=== PATIENT | male | born 1955 | race Caucasian/White ===

== ENCOUNTER 2022-09-02 11:23 | Emergency (ER) | payer MEDICARE, SELFPAY ==
[2022-09-02] VITALS (12 sets, daily range): BP systolic 168–238; BP diastolic 76–104; PULSE 59–75; TEMP 36.7; O2SAT 97–100; BMI 21.8
--- NOTE | 2022-09-02 11:26 | ED_ITS ---
HPI - General Adult General Date Seen: 09/02/22 Chief complaint: Hypertension Stated complaint: High blood pressure Time Seen by Provider: 09/02/22 11:26 Source: patient, RN notes reviewed and old records reviewed Mode of arrival: ambulatory Limitations: no limitations History of Present Illness HPI narrative: Jonnathan is a very pleasant 67-year-old gentleman otherwise healthy who was sent to the [facility] by the clinic today for elevated blood pressure. Patient had presented this morning for a cleaning and a checkup of his dentist at [facility] in [place]. At that time they had 3 separate blood pressure readings of approximately 200/100. Denies headache, chest pain, shortness of breath, visual changes. He does state that over the past years his blood pressure has been creeping up and he was worn by his MD that he would eventually need a blood pressure medication. Two days ago he states he was feeling ?queasy? and blood pressure at that time was 150/80. He had family members who at had similar symptoms but at least 10 days prior. He notes he felt like he was going to vomit and had low energy but it only lasted 1 day. He denied chest pain or shortness of breath at that time. He had no fever or chills. The next day which is yesterday he was feeling well. He continues to feel well today. Patient was playing table tennis yesterday which was quite intense at the [employer] [facility] and had no symptoms. He denies use of coffee as this caused him some palpitations in the past. He has not had coffee for a year. Last night he did eat at [employer] a local [place] restaurant. He primarily sees Dr. Eulogio ordonez. He does not know his cholesterol and is not on any current medications. He does take a vitamin-D daily in the winter only. His primary is Dr. Ro. Related Data Previous Rx's Medication Instructions Recorded amlodipine 2.5 mg-benazepril 10 mg 1 cap PO DAILY #14 caps 09/02/22 capsule Allergies Allergy/AdvReac Type Severity Reaction Status Date / Time No Known Drug Allergies Allergy Verified 09/02/22 11:36 Review of Systems Status of ROS: Reports: 10 or more systems reviewed and unremarkable except as noted in History and below Const: Denies: fever or chills Eyes: Denies: change in vision, blurry vision, blind spots or light sensitivity ENMT: Denies: throat pain, neck pain or difficulty swallowing Cardio: Denies: chest pain, palpitations, edema, swelling of feet/ankles, lightheadedness or shortness of breath with exertion Resp: Denies: shortness of breath or cough GI: Denies: abdominal pain, nausea, vomiting, diarrhea or difficulty swallowing Musculo: Denies: back pain, neck pain or extremity swelling Neuro: Denies: headache, numbness in extremities or weakness in extremities Psych: Denies: anxiety PFSH PFS Social History Smoking Status: Never smoker How often do you have a drink containing alcohol: 2-4 times a month How often do you have six or more drinks on one occasion: Never AUDIT-C Alcohol total score: 2 Non-prescribed substance use: denies use Exam Narrative: Exam Narrative: Jonnathan is alert and oriented. Very pleasant well-spoken gentleman. Head is atraumatic normocephalic. EOM is full and pupils equal round reactive. Examination of the fundi show no flame hemorrhages. Heart with regular rate and rhythm. Lungs are clear in all lung boothe. Abdomen soft nontender without pulsating mass. Lower extremities without edema. Pedal pulses posterior tibialis are intact and symmetrical. Const: Vital Signs, click to edit/add: Vital Signs - 24 hr 09/02/22 11:30 09/02/22 11:46 09/02/22 12:00 Temperature 98.1 F Pulse Rate 62 70 Pulse Rate [Pulse Oximeter] 75 Blood Pressure Blood Pressure [Ri ght Upper Arm] 238/99 H Pulse Oximetry 99 100 99 Oxygen Delivery Me thod Room Air 09/02/22 12:04 09/02/22 12:05 09/02/22 12:21 Temperature Pulse Rate 63 68 60 Pulse Rate [Pulse Oximeter] Blood Pressure 215/104 H Blood Pressure [Ri ght Upper Arm] Pulse Oximetry 99 98 99 Oxygen Delivery Me thod 09/02/22 12:30 09/02/22 12:32 09/02/22 12:45 Temperature Pulse Rate 64 59 L 60 Pulse Rate [Pulse Oximeter] Blood Pressure 169/76 H Blood Pressure [Ri ght Upper Arm] Pulse Oximetry 98 97 97 Oxygen Delivery Me thod 09/02/22 13:00 Temperature Pulse Rate 60 Pulse Rate [Pulse Oximeter] Blood Pressure Blood Pressure [Ri ght Upper Arm] Pulse Oximetry 97 Oxygen Delivery Me thod Documenting provider has reviewed patient's vital signs: yes Eye: Direct Ophthalmoscopy: no photophobia Course Course Hospital Course: Patient presents with elevated blood pressure, states that is been climbing over the years. Not currently on any a antihypertensives. Patient denies chest pain, shortness of breath, dizziness, visual changes. Does not appear to be hypertensive emergency or urgency. Patient agreeable to EKG, labs to include CBC and basic panel and troponin. Will continue to monitor. Vital Signs Vital signs: Initial Vital Signs Temperature 98.1 F 09/02/22 11:30 Temperature Source Temporal Artery Scan 09/02/22 11:30 Pulse Rate 75 09/02/22 11:30 Pulse Rhythm Irregular 09/02/22 11:30 Blood Pressure 238/99 H 09/02/22 11:30 Blood Pressure Mean 145 09/02/22 11:30 Blood Pressure Position Sitting 09/02/22 11:30 Pulse Oximetry 99 09/02/22 11:30 Oxygen Delivery Method Room Air 09/02/22 11:30 Vital Signs Temperature 98.1 F 09/02/22 11:30 Pulse Rate 75 09/02/22 11:30 Blood Pressure 238/99 H 09/02/22 11:30 Pulse Oximetry 99 09/02/22 11:30 Oxygen Delivery Method Room Air 09/02/22 11:30 Temperature 98.1 F 09/02/22 11:30 Pulse Rate 60 09/02/22 13:00 Blood Pressure 169/76 H 09/02/22 12:32 Pulse Oximetry 97 09/02/22 13:00 Oxygen Delivery Method Room Air 09/02/22 11:30 Medical Decision Making MDM Narrative Medical decision making narrative: 1. Hypertension-no evidence of urgency or emergency in this particular case. Patient's blood pressure gradually dropped to 168/77. He continued to be asymptomatic and had no complaints. At this time according to UpToDate he is eligible for a dual therapy in 1 pill. Will use amlodipine 2.5 mg/benazepril 10 mg as a starting medication. I did tell patient that he may be changed to a different medication based on clinic doctors preference. I would like him to push fluids at this time. Monitor pulse and if his pulse drops into the 40s or he has symptoms he will need to discontinue the medication. Follow up with his primary MD over the next week. Did speak to patient about normal CBC and basic panel especially potassium and kidney function. Troponin was negative. 2. Disposition-home at this time. Return as needed. Medical Records Medical records reviewed: Yes I reviewed the patient's medical records Lab Data Lab results reviewed: Yes I reviewed the patient's lab results Labs: Lab Results 09/02/22 09/02/22 Range/Units 12:08 12:15 WBC 5.81 (4.50-11.00) K/uL RBC 4.71 (4.30-5.90) m/uL Hgb 14.5 (13.5-17.5) gm/dL Hct 42.0 (37.0-53.0) % MCV 89 (80-100) fL MCH 31 (26-34) pg MCHC 35 (32-36) gm/dL RDW Coeff of Tony 11.7 (11.5-15.5) % Plt Count 211 (140-440) K/uL Neut % (Auto) 73.6 H (42.0-72.0) % Lymph % (Auto) 18.2 L (20-44) % Davis % (Auto) 7.2 (0.0-11.0) % Eos % (Auto) 0.5 (0.0-7.0) % Baso % (Auto) 0.3 (0.0-3.0) % Neut # (Auto) 4.30 (1.7-7.0) K/uL Lymph # (Auto) 1.10 (0.90-2.90) K/uL Davis # (Auto) 0.40 (0.00-0.90) K/UL Eos # (Auto) 0.03 (0.00-0.50) K/uL Baso # (Auto) 0.02 (0.00-0.30) K/uL Sodium 139 (135-149) mmol/L Potassium 4.1 (3.6-5.1) mmol/L Chloride 105 (96-114) mmol/L Carbon Dioxide 29 (20-32) mmol/L BUN 19 (7-30) mg/dL Creatinine 1.0 (0.5-1.5) mg/dL Estimated Creat Clear 76.92 Estimated GFR 83 ml/min Glucose 96 (60-115) mg/dL Calcium 8.9 (8.4-10.6) mg/dL POC Troponin I 0.01 (0.01-0.04) ng/ml ECG Data Attestation: I personally reviewed and interpreted this ECG as follows: Interpretation: EKG by my read shows sinus bradycardia at a rate of 59. No noted acute ST or T- wave changes. Normal QT and NE intervals. Discharge Plan Discharge Clinical Impression: Hypertension Patient Disposition: Home, Self-Care Condition: Improved Additional Instructions: Start a new blood pressure medication. If your pulse is drops into the 40s or you do not feel well with this medication discontinue. Push fluids. Follow-up with primary MD in the next week. Return to the emergency room as needed. Prescriptions: New amlodipine-benazepril 2.5-10 mg capsule 1 cap PO DAILY Qty: 14 0RF Follow Up/Referrals: Adeel Ro MD [Primary Care Provider] - Stand Alone Forms: [employer] Info Instructions
[2022-09-02 12:32] LABS: Basophils Absolute Auto 0.02 K/uL (0.00-0.30); Basophils Percent Auto 0.3 % (0.0-3.0); Eosinophils Absolute Auto 0.03 K/uL (0.00-0.50); Eosinophils Percent Auto 0.5 % (0.0-7.0); Hemoglobin* 14.5 gm/dL (13.5-17.5); Immature Granulocytes Abs Auto 0.01 K/uL (0.00-0.30); Immature Granulocytes Pct Auto 0.2 %; Lymphocytes Percent Auto 18.2 % (20-44); Mean Corpuscular HGB Conc 35 gm/dL (32-36); Mean Corpuscular Hemoglobin 31 pg (26-34); Mean Corpuscular Volume 89 fL (80-100); Monocytes Percent Auto 7.2 % (0.0-11.0); Neutrophils Percent Auto 73.6 % (42.0-72.0); Platelet Count* 211 K/uL (140-440); RDW Coefficient of Variation % 11.7 % (11.5-15.5); Red Blood Count 4.71 m/uL (4.30-5.90); White Blood Count* 5.81 K/uL (4.50-11.00)
[2022-09-02 12:32] LABS: Troponin, Point-of-Care* 0.01 ng/ml (0.01-0.04)
[2022-09-02 12:35] LABS: Slide Review Reflex No
[2022-09-02 12:45] LABS: Chloride* 105 mmol/L (96-114); Potassium* 4.1 mmol/L (3.6-5.1); Sodium* 139 mmol/L (135-149)
[2022-09-02 12:48] LABS: Blood Urea Nitrogen* 19 mg/dL (7-30); Carbon Dioxide* 29 mmol/L (20-32); Est. Creatinine Clearance* 76.92; Estimated Glomerular Filt Rate 83 ml/min
[2022-09-02 12:49] LABS: Calcium* 8.9 mg/dL (8.4-10.6); Glucose* 96 mg/dL (60-115)
== END 2022-09-02 13:33 | disposition home or self-care (01) ==
PROVIDERS: Emergency Provider Family Medicine; PCP Internal Medicine
DX: I10 Essential (primary) hypertension (principal)
CPT/HCPCS: 36415; 80048; 84484; 85025; 93005; 99284

== ENCOUNTER 2023-09-25 07:40 | Outpatient (CLI) | payer MEDICARE, SELFPAY | END 2023-09-25 07:41 | disposition home or self-care (01) | LOC: NFLDREF 09-29 18:45 | PROVIDERS: PCP Internal Medicine; Referring Provider Internal Medicine; Visit Provider Internal Medicine | DX: I10 Essential (primary) hypertension (principal); Z13.220 Encounter for screening for lipoid disorders; Z12.5 Encounter for screening for malignant neoplasm of prostate | CPT/HCPCS: 80053; 80061; G0103 ==

== ENCOUNTER 2023-09-27 11:04 | Outpatient (CLI) | payer MEDICARE, SELFPAY | END 2023-09-27 11:05 | disposition home or self-care (01) | PROVIDERS: PCP Internal Medicine; Visit Provider Internal Medicine | DX: I10 Essential (primary) hypertension (principal) | CPT/HCPCS: 80053; 84443 ==

== ENCOUNTER 2023-10-06 09:44 | Outpatient (CLI) | payer MEDICARE, SELFPAY | END 2023-10-06 09:45 | disposition home or self-care (01) | LOC: RAD 09:45 | PROVIDERS: PCP Internal Medicine; Visit Provider Internal Medicine | DX: I10 Essential (primary) hypertension (principal); I07.1 Rheumatic tricuspid insufficiency | CPT/HCPCS: 93306 ==

== ENCOUNTER 2024-12-09 14:46 | Outpatient (CLI) | payer MEDICARE, SELFPAY ==
--- OUTSIDE RECORDS SUMMARY | 2024-12-10 02:24 | XMS_ITS | Clinical Summary ---
Author Organization [facility] Address [address], [place] [address] Care Team Providers Care Sample Distributor Name Role Phone Asim Nelson MD Primary Care Provider Source Comments You are receiving this document as you are listed as the primary care provider,follow-up provider, or the patient has been referred to you for consultation.This is in compliance with the Medicare and[facility] EHR Incentive Program,which states Providers who transition their patient to another setting of careor provider of care or refers their patient to another provider of care shouldprovide summary care record for each transition of care or referral. [facility] Allergies No known active allergies Medications amLODIPine-gayle zepril (LOTREL) 2.5-10 MG capsule Take 1 Capsule by mouth daily. 3 Active sodium fluoride dental (PREVIDENT) 1.1 % gel Apply thin ribbon to teeth with toothbrush or mouthpiece tray for at least 1 minute. Spit out gel and rinse mouth thoroughly. 60 g 6 3 Active sodium fluoride dental (PREVIDENT) 1.1 % gel Apply thin ribbon to teeth with toothbrush or mouthpiece tray for at least 1 minute. Spit out gel and rinse mouth thoroughly. 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 Diplopia 02/04/2009 Resolved Problems Problem Noted Date Diagnosed Date Resolved Date Aortic valve disorder 03/12/20092010 Overview (03/12/2015): regurg mild on echo Epic Immunizations Immunization Administration Dates Next Due Flu Vac (18-64 Yrs), Intradermal 03/30/2012 Flu Vac (3+ yrs) 07/02/2010, 9,05/02/2006,2004,04/17/2003,04/10/2002 Influenza IIV4 (Quadrivalent ) 0.5mL (41854) 05/09/2017 Influenza Vaccine (3+years) ([facility]) 03/28/2011,04/09/2008,04/24/2007 Td 03/06/1996 Tdap 02/23/2006 Family History Medical History Relation Name Comments Other Father father has abdo dante aneurysm Cataract Mother Hypertension Mother Relation Name Status Comments Father Mother Social History Tobacco Use Types Packs/Day Years Used Date Smoking Tobacco: Never Smokeless Tobacco: Never Alcohol Use Standard Drinks/Week Comments Yes 1 (1 standard drink = 0.6 oz pure alcohol) socially possibly one drink/day Sex and Gender Information Value Date Recorded Sex Assigned at Not on file Legal Sex Male 3:46 AM CDT Gender Identity Not on file Sexual Orientation Not on file 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 file Not on file Not on fi le Last Filed Vital Signs Vital Sign Reading Time Taken Comments Blood Pressure 138/88 08/30/2017 8:27 AM CDT Pulse 71 09/02/2022 9:01 AM CDT Temperature 36.1 C (97 F) 09/14/2010 10:27 AM CDT Respiratory Rate 16 08/20/2010 8:22 AM [employer] Oxygen Saturation 100% 07/01/2010 4:22 PM [employer] Inhaled Oxygen Concentration - - Weight 75.8 kg (167 lb) 09/14/2010 10:27 AM CDT Height 184.2 cm (6' 0.5) 08/20/2010 8:22 AM [employer] Body Mass Index 22.34 08/20/2010 8:22 AM [employer]SEM[employer] Plan of Treatment Health Maintenance Due Date Last Done Comments Colon Cancer Screening Plan Due 1955 Hep C Screening (Preventive Services) 1955 PSA Screening Discussion 1955 Adult Preventive Visit 02/08/1974 Pneumococcal Vaccine 50+ Yrs (1 of 1 - PCV) 02/08/2006 Cholesterol 11/12/2009 11/12/2004 Zoster/Shingles Vaccine (2 of 3) 04/14/2016 02/18/2016 COVID-19 Vaccine (2 - season) 2024 09/21/2020 Influenza Vaccine (Season Ended) 2025 06/15/2018, 05/09/2017, 03/30/2012, Additional history exists DTaP/Tdap/Td Vaccine (3 - Tdap) 02/17/2026 02/18/2016, 02/23/2006, 03/06/1996 RSV Vaccine (1 - 1-dose 75+ series) 02/08/2031 HepA Vaccine Aged Out No longer eligi ble based on patient's age to complete this topic HepB Vaccine Aged Out No longer eligi ble based on patient's age to complete this topic Hib Vaccine Aged Out No longer eligi ble based on patient's age to complete this topic IPV (Polio) Vaccine Aged Out No longe r eligible based on patient's age to complete this topic MCV4 Vaccine Aged Out No longer eligi ble based on patient's age to complete this topic Meningococcal B Vaccine Aged Out No l onger eligible based on patient's age to complete this topic Procedures Procedure Name Priority Date/Time Associated Diagnosis Comments CHOLESTEROL, TOTAL AND HDL Routine 11/12/2004 2:56 PM CDT Screen For Lipid Disorders from Last 3 Months or Most Recently Relevant to Health Maintenance Results * CHOLESTEROL, TOTAL AND HDL (11/12/2004 2:56 PM CDT) Pathologist [facility] Cholesterol 174 <200 mg/dl [facility] HDL 40 >35 mg/dl [employer] 11/12/2004 2:56 PM CDT 11/12/2004 2:57 PM CDT us Obi Brooks MD LAB_[email or web address] Final Result [facility] [address] [id number] from Last 3 Months or Most Recently Relevant to Health Maintenance Insurance [facility] Care Teams Sample Distributor Relationship Specialty Start Date End Date Asim Nelson MD [address] [place] [address] PCP - General 03/10/09
--- OUTSIDE RECORDS SUMMARY | 2024-12-10 02:24 | XMS_ITS | Clinical Summary ---
Author Organization [employer] [facility] Address [address] [place] [id number] Care Team Providers Care Cancer Genetics Assistant Name Role Phone Adeel Ro MD Primary Care Provider Allergies No known active allergies Medications amLODIPine-benaze pril, 2.5-10 mg, (LOTREL) 2.5-10 mg capsule Take 1 Capsule by mouth once daily. Active Eliquis 5 mg tablet Take 5 mg by mouth two times daily. 4 Active metoprolol succinate (Toprol XL) 50 mg sustained-release tabletIndications :Persistent atrial fibrillation (HC) Take 1 Tablet (50 mg) by mouth once daily. 90 Tablet 3 4 Active Encounters Date Type Department Care Team Description 12/09/2024 3:00 PM CDT Ancillary Procedure [facility] [address] [place] [address] Arrived 12/03/2024 Telephone [facility] [address] [place] [address] Mary Grace Jiménez MD Appointment 11/29/2024 Telephone [facility] [address] [address] Mary Grace Jiménez MD Echo Order 10/07/2024 1:30 PM CDT Office Visit [facility] [address] [place] [address] [address] [id number] Mary Grace Jiménez MD Follow Up (6 month f/u. 04/15 zio. Pt states feeling good. No cardiac symptoms. ) 10/07/2024 Travel 10/04/2024 Travel from Last 3 Months Social History Tobacco Use Types Packs/Day Years Used Date Smoking Tobacco: Never Smokeless Tobacco: Never Tobacco Cessation:Counseling Given: Not Answered Alcohol Use Standard Drinks/Week Comments Yes 3 (1 standard drink = 0.6 oz pur e alcohol) Interpersonal Safety Answer Date Record ed Are you being hit, kicked, p ushed or yelled at (see row info)? No 12/20/2023 Interpersonal Safety Abuse 12 - 18 Not on file 12/20/2023 Interpersonal Safety Ambulatory Vulnerability No t on file 12/20/2023 Sex and Gender Information Value Date Recorded Sex Assigned at Not on file Legal Sex Male 9:27 AM CDT Gender Identity Not on file Sexual Orientation Not on file Obstetrics History Last Filed Vital Signs Vital Sign Reading Time Taken Comments Blood Pressure 128/76 10/07/2024 1:33 PM CDT Pulse 76 10/07/2024 1:33 PM CDT Temperature 36.3 C (97.3 F) 12/20/2023 2:30 PM CDT Respiratory Rate 16 12/20/2023 2:30 PM CDT Oxygen Saturation 100% 10/07/2024 1:33 PM CDT Inhaled Oxygen Concentration - - Weight 81.1 kg (178 lb 12.8 oz) 10/07/2024 1:33 PM CDT Height 185.4 cm (6' 1) 10/07/2024 1:33 PM CDT Body Mass Index 23.59 10/07/2024 1:33 PM CDT Plan of Treatment Health Maintenance Due Date Last Done Comments Tdap 02/08/1967 Depression screening for age 12+ 1968 Hepatitis C screening for ag e 18-79 02/08/1974 Pneumococcal series for age 50+ (1 of 2 - PCV) 02/08/1975 Tetanus booster 1976 Colonoscopy through age 75 02/08/2001 Lipids for age 45-75 02/08/2001 Zoster (shingles) series for age 50+ (1 of 2) 02/08/2006 Medicare Wellness for age 65+ 02/08/2021 COVID-19 vaccine series (2 - season) 2024 09/21/2020 Influenza Vaccine (Season Ended) 2025 BMI (ht and wt on same day) for age 18+ 10/07/2025 10/07/2024, 04/08/2024 RSV vaccine for adults or (1 - 1-dose 75+ series) 02/08/2031 Hepatitis B series for 19+ Aged Out N o longer eligible based on patient's age to complete this topic Procedures Procedure Name Priority Date/Time Associated Diagnosis Comments ECHO TTE COMPLETE WO CONTRAST Routine 12/09/2024 3:37 PM CDT Persistent atrial fibrillation (HC) EKG 12 LEAD Routine 10/07/2024 1:29 PM CDT Persistent atrial fibrillation (HC) from Last 3 Months Results * ECHO TTE COMPLETE WO CONTRAST (12/09/2024 3:37 PM CDT) AORTIC VALVE MEAN PG 7 mmHg EJECTION FRACTION 63 % PEAK TR VELOCITY 2.3 m/s LVEDD 3.3 cm Anatomical Region Laterality Modality Ultrasound 12/09/2024 3:00 PM CDT Narrative 12/09/2024 4:14 PM CDT ECHOCARDIOGRAM JONNATHAN DE LOS SANTOS : 1955 69 years Study Date: 12/09/2024 3:00:33 PM Gender: M BP: 124/71 mmHg Height: 185.00 cm BSA: 2.05 m Weight: 81.00 kg Tech: GABRIELA Referring MD: MARY GRACE JIMÉNEZ Site: [facility] Reading Location: Mobile-OP Patient Location: Outpatient. Procedure: 2D, Color Doppler and Spectral Doppler. Indication for study: Persistent Afib Cardiac Rhythm: Irregular.Study quality: Fair. Imaging limitations: This study was subject to imaging limitations due to a prominent lung artifact. Final Impressions: 1. Normal left ventricular size, normal wall thickness, normal global systolic function, calculated EF of 63 %. 2. Right ventricular cavity size is normal, global systolic RV function is normal. 3. Normal left atrium size. 4. The mitral valve is normal, trace mitral regurgitation. 5. The aortic valve is sclerotic, no stenosis and mild to moderate regurgitation. 6. Tricuspid valve is normal, trace tricuspid regurgitation. 7. No pericardial effusion. 8. Color Doppler suggests a possible PFO. Chamber Sizes and Function Normal left ventricular size, normal wall thickness, normal global systolic function, calculated EF of 63 %. No resting regional wall motion abnormality visualized. Left atrial size is normal. Right ventricular cavity size is normal, global systolic RV function is normal. The right atrium is normal. Right atrial volume index is 33 ml/m . Right atrial area is 20 cm . The pulmonary artery is not well visualized. The sinus of Valsalva is normal sized. The ascending aorta is normal sized. Valves, RV Pressures and Diastolic Function The aortic valve is sclerotic, no stenosis and mild to moderate regurgitation. The mitral valve is normal in structure, trace mitral regurgitation. Diastolic function assessment not performed. The tricuspid valve is normal in structure, trace tricuspid regurgitation. The tricuspid regurgitant velocity is 2.3 m/s, the estimated right ventricular systolic pressure is 21 mmHg plus right atrial pressure. There is normal estimated pulmonary pressure by tricuspid regurgitation velocity and right atrial pressure. The pulmonic valve is normal. Trace pulmonary regurgitation. Masses, Effusion, Shunts There is no pericardial effusion. The inferior vena cava is normal sized, respiratory size variation greater than 50%. Color flow Doppler imaging suggests a possible PFO. MEASUREMENTS AND CALCULATIONS 2-D Measurements and LV Function: LVID (d) 3.2 cm Planimetered EF 63 % LVID (s) 2.1 cm LV FS% (2D) 34 % IVS (d) 1.0 cm LVOT diameter 2.2 cm LVPW (d) 1.1 cm HR 72 bpm Ao Sinus 3.4 cm LA Vol index 29 ml/m2 Ao Sinus ULN 4.2 cm RA Vol index 33 ml/m2 Asc Ao 4.0 cm RA area 20 cm Asc Ao ULN 4.2 cm RV Basal Diam 3.9 cm LA 3.6 cm RV Mid Diam 2.0 cm Aortic Valve: Vmax 1.9 m/s COLLEEN (V) 2.62 cm AI P 1/2 456 msec VTI 0.40 m COLLEEN (I) 2.44 cm LVOT V max 1.3 m/s Max PG 15 mmHg LVOT VTI 0.25 m Mean PG 7 mmHg SV 98 ml Dim Index 0.61 SV index 48 ml/m CO 7.1 l/min CI 3.5 l/min/m Tricuspid Valve and estimated PA pressures: TR Vmax 2.3 m/s TAPSE 1.6 cm TR maxG 21 mmHg TV Annulus 3.3 cm . This study was interpreted by an [facility] accredited facility. CC: [facility] (med records) [facility]. Final Procedure Note Mariel Diaz, [facility] - 12/09/2024 ECHOCARDIOGRAM JONNATHAN DE LOS SANTOS : 1955 69 years Study Date: 12/09/2024 3:00:33 PM Gender: M BP: 124/71 mmHg Height: 185.00 cm BSA: 2.05 m Weight: 81.00 kg Tech: GABRIELA Referring MD: MARY GRACE JIMÉNEZ Site: [facility] Reading Location: Mobile-OP Patient Location: Outpatient. Procedure: 2D, Color Doppler and Spectral Doppler. Indication for study: Persistent Afib Cardiac Rhythm: Irregular.Study quality: Fair. Imaging limitations: This study was subject to imaging limitations due toa prominent lung artifact. Final Impressions: 1. Normal left ventricular size, normal wall thickness, normal globalsystolic function, calculated EF of 63 %. 2. Right ventricular cavity size is normal, global systolic RV functionis normal. 3. Normal left atrium size. 4. The mitral valve is normal, trace mitral regurgitation. 5. The aortic valve is sclerotic, no stenosis and mild to moderateregurgitation. 6. Tricuspid valve is normal, trace tricuspid regurgitation. 7. No pericardial effusion. 8. Color Doppler suggests a possible PFO. Chamber Sizes and Function Normal left ventricular size, normal wall thickness, normal globalsystolic function, calculated EF of 63 %. No resting regional wall motionabnormality visualized. Left atrial size is normal. Right ventricularcavity size is normal, global systolic RV function is normal. The rightatrium is normal. Right atrial volume index is 33 ml/m . Right atrialarea is 20 cm . The pulmonary artery is not well visualized. The sinus ofValsalva is normal sized. The ascending aorta is normal sized. Valves, RV Pressures and Diastolic Function The aortic valve is sclerotic, no stenosis and mild to moderateregurgitation. The mitral valve is normal in structure, trace mitralregurgitation. Diastolic function assessment not performed. The tricuspidvalve is normal in structure, trace tricuspid regurgitation. The tricuspidregurgitant velocity is 2.3 m/s, the estimated right ventricular systolicpressure is 21 mmHg plus right atrial pressure. There is normal estimatedpulmonary pressure by tricuspid regurgitation velocity and right atrialpressure. The pulmonic valve is normal. Trace pulmonary regurgitation. Masses, Effusion, Shunts There is no pericardial effusion. The inferior vena cava is normal sized,respiratory size variation greater than 50%. Color flow Doppler imagingsuggests a possible PFO. MEASUREMENTS AND CALCULATIONS 2-D Measurements and LV Function: LVID (d) 3.2 cm Planimetered EF 63 % LVID (s) 2.1 cm LV FS% (2D) 34 % IVS (d) 1.0 cm LVOT diameter 2.2 cm LVPW (d) 1.1 cm HR 72 bpm Ao Sinus 3.4 cm LA Vol index 29 ml/m2 Ao Sinus ULN 4.2 cm RA Vol index 33 ml/m2 Asc Ao 4.0 cm RA area 20 cm Asc Ao ULN 4.2 cm RV Basal Diam 3.9 cm LA 3.6 cm RV Mid Diam 2.0 cm Aortic Valve: Vmax 1.9 m/s COLLEEN (V) 2.62 cm AI P 1/2 456 msec VTI 0.40 m COLLEEN (I) 2.44 cm LVOT V max 1.3 m/s Max PG 15 mmHg LVOT VTI 0.25 m Mean PG 7 mmHg SV 98 ml Dim Index 0.61 SV index 48 ml/m CO 7.1 l/min CI 3.5 l/min/m Tricuspid Valve and estimated PA pressures: TR Vmax 2.3 m/s TAPSE 1.6 cm TR maxG 21 mmHg TV Annulus 3.3 cm . This study was interpreted by an [facility] accredited facility. CC: [facility] (med records) [facility]. Final us Mary Grace Jiménez MD ECHO ORD Fin al Result * EKG 12 LEAD (10/07/2024 1:29 PM CDT) Interpretation Atrial fibrillation Incomplete right bundle branch block Abnormal ECG When compared with ECG of 08-Apr-2024 12:56, No significant change was found Ventricular Rate 76 BPM Atrial Rate BPM P-R Interval ms QRS Duration 92 ms QT 376 ms QTc 423 ms P [place] degrees R [place] 23 degrees T [place] 58 degrees 10/07/2024 1:29 PM CDT 10/14/2024 12:38 PM CDT us Mary Grace Jiménez MD EKG ORD Fin al Result from Last 3 Months Insurance [employer] MEDICARE ADVANTAGE MR Advance Directives * Full Code (Latest Code Status on File) Date Activated Date Inactivated Comments 12/20/2023 1:25 PM 12/20/2023 4:45 PM Question Answer Comments Code Status Discussion: Other Care Teams Cancer Genetics Assistant Relationship Specialty Start Date End Date Adeel oR MD [address] [place] [address] PCP - General Internal Medicine 11/28/23
== END 2024-12-09 14:47 | disposition home or self-care (01) ==
LOC: RAD 14:49
PROVIDERS: PCP Internal Medicine; Visit Provider Internal Medicine
DX: I48.19 Other persistent atrial fibrillation (principal); I34.0 Nonrheumatic mitral (valve) insufficiency; I35.1 Nonrheumatic aortic (valve) insufficiency; I07.1 Rheumatic tricuspid insufficiency
CPT/HCPCS: 93306

== ENCOUNTER 2025-02-04 08:20 | Outpatient (CLI) | payer MEDICARE, SELFPAY | END 2025-02-04 08:21 | disposition home or self-care (01) | LOC: NFLDREF 02-06 14:28 | PROVIDERS: PCP Internal Medicine; Referring Provider Internal Medicine; Visit Provider Internal Medicine | DX: E78.5 Hyperlipidemia, unspecified (principal); I10 Essential (primary) hypertension; Z12.5 Encounter for screening for malignant neoplasm of prostate | CPT/HCPCS: 80053; 80061; G0103 ==